=== PATIENT | female | born 1980 | race Caucasian/White ===

== ENCOUNTER 2018-05-08 20:43 | Inpatient (IN) | payer OTHER ==
[2018-05-08] MEDS ORDERED: VANCOMYCIN IV PER PHARMACY XX (22:00)
[2018-05-08] MEDS ORDERED: ONDANSETRON 4 MG INJ IV (22:00)
[2018-05-08] MEDS ORDERED: NACL 0.9% 3 ML SYG IV (22:00)
[2018-05-08] MEDS ORDERED: DOCUSATE SODIUM 100 MG CAP PO (22:00)
[2018-05-08] MEDS ORDERED: BISACODYL (EC) 5 MG TAB PO (22:00)
[2018-05-08] MEDS: HEPARIN 5,000 UNIT/0.5 ML VIAL SC (23:03)
[2018-05-09] MEDS: VANCOMYCIN 1.75 GM in SOD CHLORIDE 0.9% 500 ML IVPB (00:40)
[2018-05-09 05:07] LABS: ADD MAN DIFF? NO
[2018-05-09 05:11] LABS: BASOPHIL # 0.1 10^3/ul (0.0-0.1); BASOPHILS % 0.7 % (0.0-2.0); EOSINOPHILS # 0.3 10^3/ul (0.0-0.5); EOSINOPHILS % 3.2 % (0.0-7.0); HEMATOCRIT 36.2 % (37.0-47.0); HEMOGLOBIN 11.7 g/dl (12.0-16.0); LYMPHOCYTES # 3.2 10^3/ul (0.8-2.9); LYMPHOCYTES % 32.9 % (15.0-51.0); MEAN CORPUSCULAR HEMOGLOBIN 26.4 pg (29.0-33.0); MEAN CORPUSCULAR HGB CONC 32.3 g/dl (32.0-37.0); MEAN CORPUSCULAR VOLUME 81.7 fl (82.0-101.0); MEAN PLATELET VOLUME 10.4 fl (7.4-10.4); MONOCYTE # 0.6 10^3/ul (0.3-0.9); MONOCYTES % 5.8 % (0.0-11.0); NEUTROPHIL # 5.5 10^3/ul (1.6-7.5); NEUTROPHILS % 56.6 % (39.0-77.0); PLATELET COUNT 278 10^3/UL (140-415); RED BLOOD COUNT 4.43 10^6/ul (4.20-5.40); RED CELL DISTRIBUTION WIDTH 12.5 % (11.5-14.5)
[2018-05-09 05:11] LABS: WHITE BLOOD COUNT 9.7 10^3/ul (4.8-10.8)
[2018-05-09 05:20] LABS: HEMOGLOBIN A1C 13.6 % (0-5.9)
[2018-05-09 05:31] LABS: ALANINE AMINOTRANSFERASE 25 IU/L (13-69); ALBUMIN 3.4 g/dl (3.3-4.9); ALBUMIN/GLOBULIN RATIO 0.91; ALKALINE PHOSPHATASE 130 IU/L (42-121); ANION GAP 12 (8-16); ASPARTATE AMINO TRANSFERASE 32 IU/L (15-46); BILIRUBIN,INDIRECT 0.3 mg/dl (0-1.1); BILIRUBIN,TOTAL 0.3 mg/dl (0.2-1.3); BLOOD UREA NITROGEN 8 mg/dl (7-20); CALCIUM 8.7 mg/dl (8.4-10.2); CARBON DIOXIDE 29 mmol/L (21-31); CHLORIDE 100 mmol/L (97-110); CHOL/HDL RATIO 6.7 RATIO; CHOLESTEROL 161 mg/dl (100-200); CREATININE 0.46 mg/dl (0.44-1.00); GLUCOSE 296 mg/dl (70-220); HDL CHOLESTEROL 24 mg/dl (34-88); LDL CHOLESTEROL,CALCULATED 74 mg/dl; POTASSIUM 4.6 mmol/L (3.5-5.1); SODIUM 136 mmol/L (135-144); TOTAL PROTEIN 7.1 g/dl (6.1-8.1); TRIGLYCERIDES 315 mg/dl (0-149)
[2018-05-09] MEDS: HEPARIN 5,000 UNIT/0.5 ML VIAL SC ×3 (05:31→22:29)
[2018-05-09 09:28] LABS: URIC ACID 3.8 mg/dl (3.1-7.9)
[2018-05-09 09:38] LABS: IRON 63 ug/dl (35-150)
[2018-05-09 09:48] LABS: % IRON SATURATION 25 % SAT (22-52); TOTAL IRON BINDING CAPACITY 255 ug/dl (241-421)
[2018-05-09] MEDS: morphine 2 MG INJ IV (09:49)
[2018-05-09 10:14] LABS: FERRITIN 95.5 ng/ml (6.2-137.0)
[2018-05-09] MEDS: PIPER-TAZO 3.375 GM IV (PMX) 100 ML IVPB ×2 (10:17→17:38)
[2018-05-09] MEDS ORDERED: GLUCOSE GEL 15 GRAM TUBE PO ×2 (13:00)
[2018-05-09] MEDS ORDERED: GLUCAGON 1 MG INJ IM (13:00)
[2018-05-09] MEDS ORDERED: GLUCOSE GEL 15 GRAM TUBE BUCCAL (13:00)
[2018-05-09] MEDS ORDERED: DEXTROSE 50% 50 ML SYRINGE IV ×2 (13:00)
[2018-05-09] MEDS: LOSARTAN 50 MG TAB PO (13:10)
[2018-05-09] MEDS: LINAGLIPTIN 5 MG TABLET PO (13:10)
[2018-05-09] MEDS: HYDROCODONE/APAP (5/325) TAB PO (13:24)
[2018-05-09] MEDS: ACCU-CHEK XX ×4 (13:34→20:37)
[2018-05-09] MEDS: VANCOMYCIN 1.25 GM in SOD CHLORIDE 0.9% 250 ML IVPB (14:38)
[2018-05-09] MEDS: INSULIN ASPART [NOVOLOG] 3 ML PEN SC ×2 (17:34→20:37)
[2018-05-09] MEDS: metFORMIN 500 MG TAB PO (17:38)
[2018-05-09] MEDS: REPAGLINIDE 2 MG TAB PO (17:38)
[2018-05-09] MEDS: ATORVASTATIN 20 MG TAB PO (20:32)
[2018-05-09] MEDS: INSULIN GLARGINE [LANTus] (100 UNITS/ML) SYG SC (20:34)
[2018-05-10] MEDS: PIPER-TAZO 3.375 GM IV (PMX) 100 ML IVPB ×4 (00:04→18:22)
[2018-05-10] MEDS: HYDROCODONE/APAP (5/325) TAB PO ×3 (01:02→15:11)
[2018-05-10] MEDS: ACCU-CHEK XX ×8 (02:00→21:44)
[2018-05-10] MEDS: VANCOMYCIN 1.25 GM in SOD CHLORIDE 0.9% 250 ML IVPB ×2 (02:02→14:10)
[2018-05-10 05:48] LABS: ADD MAN DIFF? NO
[2018-05-10 05:49] LABS: BASOPHIL # 0.1 10^3/ul (0.0-0.1); BASOPHILS % 0.7 % (0.0-2.0); EOSINOPHILS # 0.3 10^3/ul (0.0-0.5); EOSINOPHILS % 3.1 % (0.0-7.0); HEMOGLOBIN 12.4 g/dl (12.0-16.0); LYMPHOCYTES # 3.6 10^3/ul (0.8-2.9); LYMPHOCYTES % 33.4 % (15.0-51.0); MEAN CORPUSCULAR HEMOGLOBIN 26.7 pg (29.0-33.0); MEAN CORPUSCULAR HGB CONC 32.6 g/dl (32.0-37.0); MEAN CORPUSCULAR VOLUME 81.7 fl (82.0-101.0); MEAN PLATELET VOLUME 10.2 fl (7.4-10.4); MONOCYTE # 0.7 10^3/ul (0.3-0.9); MONOCYTES % 6.6 % (0.0-11.0); NEUTROPHIL # 5.9 10^3/ul (1.6-7.5); NEUTROPHILS % 55.2 % (39.0-77.0); PLATELET COUNT 320 10^3/UL (140-415); RED BLOOD COUNT 4.65 10^6/ul (4.20-5.40); RED CELL DISTRIBUTION WIDTH 12.4 % (11.5-14.5)
[2018-05-10 05:49] LABS: WHITE BLOOD COUNT 10.6 10^3/ul (4.8-10.8)
[2018-05-10 06:21] LABS: ALANINE AMINOTRANSFERASE 24 IU/L (13-69); ALBUMIN 3.4 g/dl (3.3-4.9); ALBUMIN/GLOBULIN RATIO 0.97; ALKALINE PHOSPHATASE 113 IU/L (42-121); ANION GAP 13 (8-16); ASPARTATE AMINO TRANSFERASE 29 IU/L (15-46); BILIRUBIN,INDIRECT 0.1 mg/dl (0-1.1); BILIRUBIN,TOTAL 0.1 mg/dl (0.2-1.3); BLOOD UREA NITROGEN 9 mg/dl (7-20); C-REACTIVE PROTEIN 4.8 mg/dl (0.0-0.9); CALCIUM 9.1 mg/dl (8.4-10.2); CARBON DIOXIDE 29 mmol/L (21-31); CHLORIDE 100 mmol/L (97-110); GLUCOSE 195 mg/dl (70-220); POTASSIUM 4.9 mmol/L (3.5-5.1); SODIUM 137 mmol/L (135-144); TOTAL PROTEIN 6.9 g/dl (6.1-8.1)
[2018-05-10] MEDS: HEPARIN 5,000 UNIT/0.5 ML VIAL SC ×3 (06:54→21:50)
[2018-05-10] MEDS: REPAGLINIDE 2 MG TAB PO ×3 (07:56→17:35)
[2018-05-10] MEDS: metFORMIN 500 MG TAB PO ×2 (07:56→17:35)
[2018-05-10] MEDS: INSULIN ASPART [NOVOLOG] 3 ML PEN SC ×4 (07:56→21:00)
[2018-05-10] MEDS: LINAGLIPTIN 5 MG TABLET PO (07:59)
[2018-05-10] MEDS: PRENATAL VITAMIN PO (08:39)
[2018-05-10] MEDS: LOSARTAN 50 MG TAB PO (08:39)
[2018-05-10 08:45] LABS: ERYTHROCYTE SEDIMENTATION RATE 49 mm/Hr (0-20)
[2018-05-10 13:51] LABS: VANCOMYCIN,TROUGH 6.9 ug/ml (10.0-20.0)
[2018-05-10] MEDS: INSULIN GLARGINE [LANTus] (100 UNITS/ML) SYG SC (20:20)
[2018-05-10] MEDS: ATORVASTATIN 20 MG TAB PO (20:22)
[2018-05-10] MEDS: VANCOMYCIN 1 GM 250 ML IVPB (21:37)
[2018-05-11] MEDS: PIPER-TAZO 3.375 GM IV (PMX) 100 ML IVPB ×5 (00:13→23:59)
[2018-05-11] MEDS: ACCU-CHEK XX ×6 (02:00→20:59)
[2018-05-11] MEDS: VANCOMYCIN 1 GM 250 ML IVPB ×3 (06:44→21:02)
[2018-05-11] MEDS: HEPARIN 5,000 UNIT/0.5 ML VIAL SC ×3 (06:46→21:14)
[2018-05-11] MEDS: INSULIN ASPART [NOVOLOG] 3 ML PEN SC ×4 (08:06→20:58)
[2018-05-11] MEDS: metFORMIN 500 MG TAB PO ×2 (08:07→18:50)
[2018-05-11] MEDS: PRENATAL VITAMIN PO (08:07)
[2018-05-11] MEDS: LINAGLIPTIN 5 MG TABLET PO (08:07)
[2018-05-11] MEDS: REPAGLINIDE 2 MG TAB PO ×3 (08:07→17:35)
[2018-05-11] MEDS: LOSARTAN 50 MG TAB PO (08:08)
[2018-05-11] MEDS: HYDROCODONE/APAP (5/325) TAB PO (10:42)
[2018-05-11] MEDS: ASPIRIN (EC) 81 MG TAB PO (13:13)
[2018-05-11] MEDS: morphine 2 MG INJ IV (18:44)
[2018-05-11] MEDS ORDERED: morphine LIQ (10 MG/5 ML) CUP PO (19:30)
[2018-05-11] MEDS ORDERED: ATORVASTATIN 20 MG TAB PO (21:00)
[2018-05-11] MEDS: INSULIN GLARGINE [LANTus] (100 UNITS/ML) SYG SC (21:01)
[2018-05-11] MEDS: ATORVASTATIN 20 MG TAB PO (21:02)
[2018-05-12] MEDS: ACCU-CHEK XX ×5 (02:00→21:00)
[2018-05-12 05:39] LABS: ADD MAN DIFF? NO
[2018-05-12 05:42] LABS: WHITE BLOOD COUNT 9.4 10^3/ul (4.8-10.8)
[2018-05-12 05:42] LABS: BASOPHIL # 0.1 10^3/ul (0.0-0.1); BASOPHILS % 0.7 % (0.0-2.0); EOSINOPHILS # 0.3 10^3/ul (0.0-0.5); EOSINOPHILS % 3.1 % (0.0-7.0); HEMATOCRIT 37.8 % (37.0-47.0); HEMOGLOBIN 12.4 g/dl (12.0-16.0); LYMPHOCYTES # 2.9 10^3/ul (0.8-2.9); LYMPHOCYTES % 30.6 % (15.0-51.0); MEAN CORPUSCULAR HEMOGLOBIN 27.1 pg (29.0-33.0); MEAN CORPUSCULAR HGB CONC 32.8 g/dl (32.0-37.0); MEAN CORPUSCULAR VOLUME 82.5 fl (82.0-101.0); MEAN PLATELET VOLUME 9.6 fl (7.4-10.4); MONOCYTE # 0.6 10^3/ul (0.3-0.9); MONOCYTES % 6.3 % (0.0-11.0); NEUTROPHIL # 5.5 10^3/ul (1.6-7.5); NEUTROPHILS % 58.1 % (39.0-77.0); PLATELET COUNT 319 10^3/UL (140-415); RED BLOOD COUNT 4.58 10^6/ul (4.20-5.40); RED CELL DISTRIBUTION WIDTH 12.6 % (11.5-14.5)
[2018-05-12 06:16] LABS: ANION GAP 12 (8-16); BLOOD UREA NITROGEN 9 mg/dl (7-20); CALCIUM 9.5 mg/dl (8.4-10.2); CARBON DIOXIDE 28 mmol/L (21-31); CHLORIDE 104 mmol/L (97-110); CREATININE 0.57 mg/dl (0.44-1.00); GLUCOSE 132 mg/dl (70-220); MAGNESIUM 1.7 mg/dl (1.7-2.5); POTASSIUM 4.2 mmol/L (3.5-5.1); SODIUM 140 mmol/L (135-144)
[2018-05-12] MEDS: PIPER-TAZO 3.375 GM IV (PMX) 100 ML IVPB ×2 (06:26→13:08)
[2018-05-12] MEDS: HEPARIN 5,000 UNIT/0.5 ML VIAL SC ×2 (06:30→14:00)
[2018-05-12 06:45] LABS: VANCOMYCIN,TROUGH 11.3 ug/ml (10.0-20.0)
[2018-05-12] MEDS: VANCOMYCIN 1 GM 250 ML IVPB ×3 (07:09→21:29)
[2018-05-12] MEDS: INSULIN ASPART [NOVOLOG] 3 ML PEN SC ×4 (08:00→21:00)
[2018-05-12] MEDS: ASPIRIN (EC) 81 MG TAB PO (08:08)
[2018-05-12] MEDS: PRENATAL VITAMIN PO (08:09)
[2018-05-12] MEDS: LINAGLIPTIN 5 MG TABLET PO (08:09)
[2018-05-12] MEDS: REPAGLINIDE 2 MG TAB PO ×3 (08:09→17:36)
[2018-05-12] MEDS: metFORMIN 500 MG TAB PO ×2 (08:09→17:36)
[2018-05-12] MEDS: LOSARTAN 50 MG TAB PO (08:10)
[2018-05-12] MEDS: INSULIN GLARGINE [LANTus] (100 UNITS/ML) SYG SC ×2 (20:00→23:23)
[2018-05-12] MEDS: ATORVASTATIN 20 MG TAB PO (21:24)
[2018-05-12] MEDS: ACETAMINOPHEN 325 MG TAB PO (21:43)
[2018-05-13] MEDS: ACCU-CHEK XX ×5 (02:00→21:00)
[2018-05-13] MEDS: VANCOMYCIN 1 GM 250 ML IVPB ×3 (06:03→22:44)
[2018-05-13 06:44] LABS: ADD MAN DIFF? NO
[2018-05-13 06:47] LABS: BASOPHIL # 0.1 10^3/ul (0.0-0.1); BASOPHILS % 0.8 % (0.0-2.0); EOSINOPHILS # 0.3 10^3/ul (0.0-0.5); EOSINOPHILS % 3.4 % (0.0-7.0); HEMATOCRIT 39.5 % (37.0-47.0); HEMOGLOBIN 12.9 g/dl (12.0-16.0); LYMPHOCYTES # 2.9 10^3/ul (0.8-2.9); LYMPHOCYTES % 31.9 % (15.0-51.0); MEAN CORPUSCULAR HEMOGLOBIN 26.9 pg (29.0-33.0); MEAN CORPUSCULAR HGB CONC 32.7 g/dl (32.0-37.0); MEAN CORPUSCULAR VOLUME 82.5 fl (82.0-101.0); MEAN PLATELET VOLUME 9.7 fl (7.4-10.4); MONOCYTE # 0.6 10^3/ul (0.3-0.9); MONOCYTES % 6.4 % (0.0-11.0); NEUTROPHIL # 5.1 10^3/ul (1.6-7.5); NEUTROPHILS % 56.3 % (39.0-77.0); PLATELET COUNT 355 10^3/UL (140-415); RED BLOOD COUNT 4.79 10^6/ul (4.20-5.40); RED CELL DISTRIBUTION WIDTH 12.3 % (11.5-14.5)
[2018-05-13] MEDS: ACETAMINOPHEN 325 MG TAB PO ×2 (06:56→22:10)
[2018-05-13 07:24] LABS: ANION GAP 13 (8-16); BLOOD UREA NITROGEN 10 mg/dl (7-20); CALCIUM 9.3 mg/dl (8.4-10.2); CARBON DIOXIDE 27 mmol/L (21-31); CHLORIDE 105 mmol/L (97-110); CREATININE 0.54 mg/dl (0.44-1.00); GLUCOSE 146 mg/dl (70-220); POTASSIUM 3.9 mmol/L (3.5-5.1); SODIUM 141 mmol/L (135-144)
[2018-05-13] MEDS: LINAGLIPTIN 5 MG TABLET PO (08:17)
[2018-05-13] MEDS: REPAGLINIDE 2 MG TAB PO ×3 (08:17→17:56)
[2018-05-13] MEDS: ASPIRIN (EC) 81 MG TAB PO (08:17)
[2018-05-13] MEDS: PRENATAL VITAMIN PO (08:17)
[2018-05-13] MEDS: metFORMIN 500 MG TAB PO ×2 (08:18→17:56)
[2018-05-13] MEDS: LOSARTAN 50 MG TAB PO (08:19)
[2018-05-13] MEDS: ENOXAPARIN 40 MG/0.4 ML SYG SC (08:19)
[2018-05-13] MEDS: INSULIN ASPART [NOVOLOG] 3 ML PEN SC ×4 (08:20→20:47)
[2018-05-13] MEDS: INSULIN GLARGINE [LANTus] (100 UNITS/ML) SYG SC (20:41)
[2018-05-13] MEDS: ATORVASTATIN 20 MG TAB PO (20:42)
[2018-05-14] MEDS: ACCU-CHEK XX ×5 (02:00→21:00)
[2018-05-14 05:51] LABS: ADD MAN DIFF? NO
[2018-05-14 05:58] LABS: BASOPHIL # 0.1 10^3/ul (0.0-0.1); BASOPHILS % 0.8 % (0.0-2.0); EOSINOPHILS # 0.3 10^3/ul (0.0-0.5); EOSINOPHILS % 3.3 % (0.0-7.0); HEMATOCRIT 38.9 % (37.0-47.0); HEMOGLOBIN 12.7 g/dl (12.0-16.0); LYMPHOCYTES # 2.9 10^3/ul (0.8-2.9); LYMPHOCYTES % 31.9 % (15.0-51.0); MEAN CORPUSCULAR HGB CONC 32.6 g/dl (32.0-37.0); MEAN CORPUSCULAR VOLUME 82.6 fl (82.0-101.0); MEAN PLATELET VOLUME 9.5 fl (7.4-10.4); MONOCYTE # 0.6 10^3/ul (0.3-0.9); NEUTROPHIL # 5.2 10^3/ul (1.6-7.5); NEUTROPHILS % 56.7 % (39.0-77.0); PLATELET COUNT 354 10^3/UL (140-415); RED BLOOD COUNT 4.71 10^6/ul (4.20-5.40); RED CELL DISTRIBUTION WIDTH 12.4 % (11.5-14.5)
[2018-05-14 05:58] LABS: WHITE BLOOD COUNT 9.1 10^3/ul (4.8-10.8)
[2018-05-14 06:14] LABS: INR 0.97
[2018-05-14 06:15] LABS: PARTIAL THROMBOPLASTIN TIME 30.9 Sec (25.0-35.0)
[2018-05-14] MEDS: VANCOMYCIN 1 GM 250 ML IVPB ×3 (06:15→22:22)
[2018-05-14 06:30] LABS: ANION GAP 12 (8-16); BLOOD UREA NITROGEN 11 mg/dl (7-20); CALCIUM 9.5 mg/dl (8.4-10.2); CARBON DIOXIDE 28 mmol/L (21-31); CHLORIDE 105 mmol/L (97-110); CREATININE 0.59 mg/dl (0.44-1.00); GLUCOSE 122 mg/dl (70-220); MAGNESIUM 1.5 mg/dl (1.7-2.5); POTASSIUM 4.2 mmol/L (3.5-5.1); SODIUM 141 mmol/L (135-144)
[2018-05-14] MEDS ORDERED: CEFAZOLIN 1 GM INJ (07:00)
[2018-05-14] MEDS: INSULIN ASPART [NOVOLOG] 3 ML PEN SC ×4 (08:00→20:55)
[2018-05-14] MEDS: LINAGLIPTIN 5 MG TABLET PO (08:41)
[2018-05-14] MEDS: PRENATAL VITAMIN PO (08:41)
[2018-05-14] MEDS: REPAGLINIDE 2 MG TAB PO ×4 (08:42→16:57)
[2018-05-14] MEDS: ENOXAPARIN 40 MG/0.4 ML SYG SC (08:42)
[2018-05-14] MEDS: LOSARTAN 50 MG TAB PO (08:42)
[2018-05-14] MEDS: ASPIRIN (EC) 81 MG TAB PO (08:42)
[2018-05-14] MEDS: metFORMIN 500 MG TAB PO ×2 (08:42→17:40)
[2018-05-14] MEDS: DEXTROSE 5%-0.45% NACL 1,000 ML IV (10:45)
[2018-05-14] MEDS: MAGNESIUM SULFATE 2 GM/50 ML 50 ML IVPB (12:21)
[2018-05-14] MEDS ORDERED: ONDANSETRON 4 MG INJ IV (17:30)
[2018-05-14] MEDS ORDERED: TRIMETHOBENZAMIDE 100 MG/ML VIAL IM (17:30)
[2018-05-14] MEDS ORDERED: DIPHENHYDRAMINE 50 MG INJ IV (17:30)
[2018-05-14] MEDS ORDERED: OXYCODONE/ACETAMINOPHEN (5/325) TAB PO ×2 (17:30)
[2018-05-14] MEDS ORDERED: hydrALAzine 20 MG INJ IV (17:30)
[2018-05-14] MEDS ORDERED: MIDAZOLAM 1 MG/ML 2 ML INJ IV (17:30)
[2018-05-14] MEDS ORDERED: IPRATROPIUM (NEB) 0.5 MG/2.5 ML AMP HHN (17:30)
[2018-05-14] MEDS ORDERED: HYDROmorphONE 1 MG/5 ML IV SYRINGE IV ×3 (17:30)
[2018-05-14] MEDS ORDERED: FENTAnyl 50 MCG/ML VIAL IV ×3 (17:30)
[2018-05-14] MEDS ORDERED: EPHEDrine SULFATE 50 MG/5 ML SYG IV (17:30)
[2018-05-14] MEDS ORDERED: ALBUTEROL 0.083% (NEB) 2.5 MG/3 ML AMP HHN (17:30)
[2018-05-14] MEDS ORDERED: LABETALOL HCL 20MG INJ IV (17:30)
[2018-05-14] MEDS ORDERED: MEPERIDINE 25 MG INJ IV (17:30)
[2018-05-14] MEDS ORDERED: POLYMYXIN/BACITRACIN 1L IRRIG (17:39)
[2018-05-14] MEDS ORDERED: FENTAnyl 50 MCG/ML VIAL (17:53)
[2018-05-14] MEDS ORDERED: PROPOFOL 20 ML (17:53)
[2018-05-14] MEDS ORDERED: MIDAZOLAM 1 MG/ML 2 ML INJ (17:53)
[2018-05-14] MEDS ORDERED: KETOROLAC 30 MG INJ (17:53)
[2018-05-14] MEDS: BUPIVACAINE 0.5% (SDV) 30 ML INJ (18:13)
[2018-05-14] MEDS: LIDOCAINE 2% (MDV) 20 ML INJ (18:17)
[2018-05-14] MEDS: ATORVASTATIN 20 MG TAB PO (20:51)
[2018-05-14] MEDS: INSULIN GLARGINE [LANTus] (100 UNITS/ML) SYG SC (20:53)
[2018-05-14 21:07] LABS: VANCOMYCIN,TROUGH 14.4 ug/ml (10.0-20.0)
[2018-05-15] MEDS: ACCU-CHEK XX ×4 (02:00→16:46)
[2018-05-15] MEDS: ACETAMINOPHEN 325 MG TAB PO (05:57)
[2018-05-15] MEDS: VANCOMYCIN 1 GM 250 ML IVPB ×2 (05:57→14:35)
[2018-05-15] MEDS: INSULIN ASPART [NOVOLOG] 3 ML PEN SC ×2 (07:57→11:53)
[2018-05-15] MEDS: ENOXAPARIN 40 MG/0.4 ML SYG SC (08:13)
[2018-05-15] MEDS: LOSARTAN 50 MG TAB PO (08:15)
[2018-05-15] MEDS: PRENATAL VITAMIN PO (08:15)
[2018-05-15] MEDS: metFORMIN 500 MG TAB PO (08:15)
[2018-05-15] MEDS: ASPIRIN (EC) 81 MG TAB PO (08:15)
[2018-05-15] MEDS: REPAGLINIDE 2 MG TAB PO ×2 (08:15→11:53)
[2018-05-15] MEDS: LINAGLIPTIN 5 MG TABLET PO (08:15)
== END 2018-05-15 17:40 | disposition home or self-care (01) | DRG 580 ==
LOC: PP2 20:43
PROC: 0J9Q0ZZ Drainage of Right Foot Subcutaneous Tissue and Fascia, Open Approach (ICD-10-PCS; principal; 2018-05-14 17:00)
DX: L02.611 Cutaneous abscess of right foot (principal); Z68.42 Body mass index [BMI] 45.0-49.9, adult; L03.115 Cellulitis of right lower limb; L03.031 Cellulitis of right toe; E66.01 Morbid (severe) obesity due to excess calories; E78.5 Hyperlipidemia, unspecified; D64.9 Anemia, unspecified; I10 Essential (primary) hypertension; E11.65 Type 2 diabetes mellitus with hyperglycemia; E83.42 Hypomagnesemia
CPT/HCPCS: 73630; 73718; 80048; 80053; 80061; 80202; 82728; 82962; 83036; 83540; 83735; 84443; 84560; 84703; 85025; 85610; 85651; 85730; 86140; 87070

== ENCOUNTER 2018-06-11 12:46 | Emergency (ER) | payer OTHER | END 2018-06-11 15:34 | disposition home or self-care (01) | LOC: FTE 12:46 | DX: Z48.01 Encounter for change or removal of surgical wound dressing (principal); E11.9 Type 2 diabetes mellitus without complications; Z79.4 Long term (current) use of insulin | CPT/HCPCS: 73630; 99283-25 ==